=== PATIENT | female | born 2000 | race Caucasian/White ===

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

== ENCOUNTER 2022-12-30 16:02 | Emergency (ER) | payer MEDICAID, SELFPAY ==
[2022-12-30] VITALS (8 sets, daily range): BP systolic 109–114; BP diastolic 60–78; PULSE 75–91; RESP 16–18; TEMP 36; O2SAT 96–100; BMI 22.2
[2022-12-30 17:08] LABS: Absolute Lymphocyte Count 2.53 X10^3/uL (0.83-4.51); Basophil# 0.04 X10^3/uL; Basophil% 0.6 % (0-1); Eosinophil# 0.11 X10^3/uL; Eosinophils% 1.5 % (0-5); Hematocrit 44.9 % (37-47); Hemoglobin 14.7 g/dL (12.0-15.0); Internal QC Validated? YES +Cl - CLEAR BKGD; Lymphocyte # 2.53 X10^3/ul (0.83-4.51); Lymphocyte % 35.2 % (19-41); Mean Corp Hgb Conc 32.7 g/dL (32-36); Mean Corpuscular Hgb 29.5 pg (27.0-32.0); Mean Corpuscular Volume 90.2 fL (81-99); Mean Platelet Vol. 12.2 fl (6.2-12.0); Monocyte# 0.52 X10^3/uL; Monocyte% 7.2 % (0-10); NRBC Flagged by Analyzer 0 % (0-5); Neutrophil # 3.97 X10^3/uL (2.7-7.7); Neutrophil % 55.2 % (47-70); Platelet Count 228 K/mm3 (150-450); RBC Distribution Width CV 12.6 % (11.6-14.6); RBC Distribution Width SD 41.8 fl (35.1-43.9); Record Kit Lot#, Serum Preg. HCG0000667200; Red Blood Count 4.98 M/mm3 (4.2-5.4); White Blood Count 7.2 K/mm3 (4.4-11.0)
[2022-12-30 17:12] LABS: Pregnancy, Serum, hCG Quali. NEGATIVE Negative
[2022-12-30 17:18] LABS: Anion Gap 6 (5-15); BUN 13 mg/dL (7-18); Calcium,Total 9.5 mg/dL (8.5-10.1); Chloride 105 mmol/L (98-107); Creatinine, Serum 0.86 mg/dL (0.55-1.02); EST Glomerular Filtration Rate 89 mL/min (>60); Est Glom Filt Rate - Afr Amer 108 mL/min (>60); Estimated Creatinine Clearance 78.74 ml/min; Glucose 106 mg/dL (74-106); Potassium 3.5 mmol/L (3.5-5.1); Sodium Level 138 mmol/L (136-145)
[2022-12-30 17:26] LABS: Alcohol, Blood (Medical)-Serum < 3.0 mg/dL
[2022-12-30 17:28] LABS: Amphetamine Urine VISTA NEGATIVE (<1000 ng/mL); Barbiturate Urine VISTA NEGATIVE (< 200 ng/mL); Benzodiazepine Urine VISTA NEGATIVE (< 200 ng/mL); Cocaine Urine VISTA NEGATIVE (< 300 ng/mL); Ecstacy Urine VISTA NEGATIVE (< 500 ng/mL); Methadone Urine VISTA NEGATIVE (< 300 ng/mL); PCP Urine VISTA NEGATIVE (< 25 ng/mL); THC Urine VISTA NEGATIVE (< 50 ng/mL); Vista UDS pH Range 7
--- NOTE | 2022-12-30 17:30 | EX.ED.VIS.PS ---
HPI HPI - Psych History of Present Illness Chief Complaint: Suicidal Narrative Narrative: 22-year-old female past medical history of bipolar disorder, takes spironolactone for her acne, is a student at the [employer] who has been going through the wellness center for her increasing depression. She relates remote history that when she was 16 years old she had an attempted suicide and was hospitalized as an inpatient. She currently does not take any medications for her bipolar disorder. She states over the last 6 weeks at school, she has been very stressed and more depressed. Her grandfather at the end of last semester, and she did not go through any counseling for it. She has become increasingly depressed and while she has thoughts of suicide more frequently, they are becoming intrusive. She states that she has no plans on committing suicide, but she thinks about it more often. Additionally, she relates history that she is having hallucinations both auditory and visual. She states that she will wake up and see bugs on the dorm room wall, and other times she will see a silhouette of the face in front of her when she awakens, and she swats that it and there is nothing there. She has been having problems with only eating up to 500 anthony a day for the last 6 weeks. She states that she has had decreased appetite but denies any binging and purging. She has not been diagnosed with anorexia. [facility] Medical History Anxiety Bipolar 1 disorder Suicidal ideation Home Medications spironolactone 100 mg tablet 200 mg PO DAILY 12/30/22 [History Last Taken Unknown] Allergy/AdvReac Type Severity Reaction Status Date / Time meclizine Allergy Intermediate Hives Verified 12/30/22 16:09 Surgical History History of umbilical hernia repair Social History Smoking Status: Never smoker ROS ROS ED ROS Narrative Constitutional: No fever, no chills. HEENT: No sore throat. No neck pain. No loss of vision. No rhinorrhea. Cardiovascular: No chest pain. No palpitations. No pedal edema. Respiratory: No cough, no shortness of breath. Abdominal: No abdominal pain. No nausea. No vomiting. Genitourinary: No dysuria. No hematuria. Musculoskeletal: No myalgias. No arthralgias. Neurologic: No headaches. No dizziness. No lightheadedness. Skin: No rash. No change in color. Psychiatric: Patient depression. Reported visual and auditory hallucinations, but not together. Increasing thoughts of suicide with no plan. EXAM Physical Exam Narrative Exam Narrative: Afebrile. Vital signs noted. HEENT: Normocephalic. Atraumatic. PERRL, EOMI. Neck soft and supple. No point tenderness or step off. Cardiovascular: Regular rate and rhythm. No murmurs, rubs, or gallops appreciated. Respiratory: No tachypnea. Lungs clear to auscultation bilaterally. Gastrointestinal: Abdomen soft, nontender, with normoactive bowel sounds. No rebound or guarding. Neurological: Awake. Alert. Nonfocal, nonlateralizing. Skin: No rash. Normal color. No pallor. Musculoskeletal: No pedal edema. Full range of motion extremities. Psychiatric: Mildly depressed and flat affect. Tearful on examination. Thoughts of suicide but no plan, feels somewhat hopeful. No internal stimulation noted. Appropriate and cooperative. Const Vital Signs: 12/30/22 16:03 12/30/22 17:03 12/30/22 18:00 Temperature 96.8 F L Temperature Source Temporal Pulse Rate 91 88 76 Respiratory Rate 18 16 16 Blood Pressure 114/78 Blood Pressure Mean 90 Pulse Ox 96 100 Oxygen Delivery Method Room Air Room Air Room Air 12/30/22 18:59 12/30/22 19:56 Temperature Temperature Source Pulse Rate 75 76 Respiratory Rate 16 16 Blood Pressure Blood Pressure Mean Pulse Ox 100 100 Oxygen Delivery Method Room Air Room Air MDM MDM MDM Narrative Medical decision making narrative: Given that she has not been eating well, RN at school told her to come to the emergency department for the hallucinations and fear that she may be dehydrated. Medical screening labs were obtained. Her drug screen is negative, ethyl alcohol is negative, urine test is negative. Her electrolyte panel is grossly unremarkable without signs of dehydration with a normal BUN of 13, creatinine normal at 0.86, normal sodium of 138, and potassium normal at 3.5. I do not feel IV fluids are indicated. Her CBC shows normal white count of 7.2 and hemoglobin normal at 14.7. At this point in time, I do feel that she is medically cleared for evaluation by mental health/crisis. In discussion with the mental health counselor/crisis counselor, it was felt that given her auditory, visual, and tactile hallucinations, and that she is not on any medications for her bipolar disorder and has not taken any for years, that she should be hospitalized for stabilization. She is not willing to go to intensive outpatient therapy. I do feel that she requires placement in a psychiatric facility currently because of her hallucinations, decreased appetite, and increasing depression. She will be signed out to the oncoming physician for further observation as she awaits placement in a psychiatric facility. She is in stable condition. History & Record Review Discussion w/independent historian: Patient Additional record(s) reviewed:: Prior ED visit and Prior labs Lab Data Attestation: I reviewed the patient's lab results. Labs: Laboratory Results - last 24 hr 12/30/22 16:27 WBC 7.2 RBC 4.98 Hgb 14.7 Hct 44.9 MCV 90.2 MCH 29.5 MCHC 32.7 RDW Std Deviation 41.8 RDW Coeff of Bianca 12.6 Plt Count 228 MPV 12.2 H Immature Gran % (Auto) 0.300 Neut % (Auto) 55.2 Lymph % (Auto) 35.2 Miner % (Auto) 7.2 Eos % (Auto) 1.5 Baso % (Auto) 0.6 Absolute Neuts (auto) 4.0 Absolute Lymphs (auto) 2.53 Nucleated RBC % 0 Sodium 138 Potassium 3.5 Chloride 105 Carbon Dioxide 27.0 Anion Gap 6 BUN 13 Creatinine 0.86 Estim Creat Clear Calc 78.74 Est GFR (MDRD) Af Amer 108 Est GFR (MDRD) Non-Af 89 BUN/Creatinine Ratio 15.0 Glucose 106 Calcium 9.5 Serum , Qual NEGATIVE Urine Opiates Screen NEGATIVE Urine Methadone Screen NEGATIVE Ur Barbiturates Screen NEGATIVE Ur Phencyclidine Scrn NEGATIVE Ur Amphetamines Screen NEGATIVE MDMA (Ecstasy) Screen NEGATIVE U Benzodiazepines Scrn NEGATIVE Urine Cocaine Screen NEGATIVE U Cannabinoids Screen NEGATIVE Ur Drug Screen Comment Ethyl Alcohol < 3.0 Management Discussion w/another healthcare provider: Behavioral health (Crisis counselor) Discharge Plan Triage Chief Complaint: Suicidal ED Provider: Hardy Tomas Dx/Rx/DC Orders Prescriptions: No Action spironolactone 100 mg tablet 200 mg PO DAILY Primary Care Provider: Care Physician,Viky Primary Referrals: Care Physician,No Primary [Primary Care Provider] -
[2022-12-30] MEDS: Ibuprofen 600 MG Tablet PO (23:12)
[2022-12-31] VITALS: RESP 16
[2022-12-31 01:00] VITALS: RESP 16
[2022-12-31 02:00] VITALS: RESP 16
[2022-12-31 07:17] VITALS: BP 101/62; PULSE 82; RESP 16; TEMP 36.4; O2SAT 100
--- NOTE | 2022-12-31 08:34 | ED.RN ---
A director from [facility] called and requested information on this patient; advised her due to HIPAA there was no further information I could give her. She requested to speak with our SW, no SW currently on shift.
== END 2022-12-31 09:36 ==
PROVIDERS: Emergency Provider Emergency Medicine; Visit Provider Emergency Medicine
DX: R44.3 Hallucinations, unspecified (principal); F31.9 Bipolar disorder, unspecified
CPT/HCPCS: 36415; 80048; 80307; 82077; 84703; 85025; 87426; 99285; A4216

== ENCOUNTER 2023-05-21 15:38 | Emergency (ER) | payer MEDICAID, SELFPAY ==
[2023-05-21 15:39] VITALS: BP 108/75; PULSE 88; RESP 17; TEMP 36.3; O2SAT 98; BMI 23.6
[2023-05-21 16:31] LABS: Bacteria 0 SEEN /hpf (None Seen); Mucous, Urine 0 SEEN /hpf (<or=2+); Red Blood Cells-Urine 0 SEEN /hpf (0-5); White Blood Cells 0 SEEN /hpf (0-5)
[2023-05-21 16:35] LABS: Color, Urine Yellow (Yellow); Glucose, Dipstick Normal (Normal); Ketone-Dipstick Negative (Negative); Leukocyte Esterase-Dipstick Negative /ul (Negative); Nitrite-Dipstick Negative (Negative); Occult Blood-Urine Negative /ul (Negative); Protein-Dipstick Negative (Negative); Urine Bilirubin Dipstick Negative (Negative); Urine Clarity Clear (Clear); Urine Urobilinogen Normal (Normal)
[2023-05-21 16:36] LABS: Internal QC Validated? YES +Cl - CLEAR BKGD; Pregnancy, Urine Negative Negative
[2023-05-21 16:53] LABS: Squamous Epithelial Cells - UA 0-5 SEEN /hpf (5-10)
--- NOTE | 2023-05-21 22:17 | EDS_ITS ---
HPI HPI - Female History of Present Illness Chief Complaint: Vag Bleeding Narrative Narrative: 22-year-old female with vaginal bleeding and vaginal irritation. She states she is sexually active with her partner. She has no concern for STDs. She notes she has had some itching and irritation this week. She is also had some vaginal spotting which is atypical for her. She is supposed to start her menstrual cycle next week. No concern for . She does not have any abdominal pain. PFSH PFS Medical History Anxiety Bipolar 1 disorder Suicidal ideation Home Medications spironolactone 100 mg tablet 200 mg PO DAILY 12/30/22 [History Last Taken Unknown] fluconazole 150 mg tablet 150 mg PO Q3D 2 doses #2 tabs 05/21/23 [Rx Last Taken Unknown] metronidazole 500 mg tablet 500 mg PO BID #14 tabs 05/21/23 [Rx Last Taken Unknown] Allergy/AdvReac Type Severity Reaction Status Date / Time meclizine Allergy Intermediate Hives Verified 05/21/23 15:40 Surgical History History of umbilical hernia repair Social History Smoking Status: Never smoker ROS ROS ED Constitutional Constitutional ED: Denies chills, fever(s) or sweats Eyes Eyes: Denies blurry vision or change in vision ENT ENT ED: Denies ear pain or sore throat Cardiovascular Cardiovascular: Denies chest pain, palpitations or racing heartbeat Respiratory/Chest Respiratory/Chest: Denies cough, dyspnea or sputum Gastrointestinal Gastrointestinal: Denies abdominal pain, constipation, diarrhea, nausea or vomiting Genitourinary Genitourinary ED: Reports other Details: Vaginal spotting and itching ; Denies dysuria, hematuria or urinary frequency Musculoskeletal Musculoskeletal: Denies arthralgias, myalgias or neck pain Integumentary Denies abscess, Abrasions or rash Neurologic Neurologic: Denies headache(s), paresthesias or weakness Psychiatric Psychiatric: Denies anxiety, depression, suicidal ideation or suicidal thoughts Endocrine Endocrinology: Denies polydipsia or polyuria EXAM Physical Exam Const Vital Signs: 05/21/23 15:39 Temperature 97.4 F L Temperature Source Temporal Pulse Rate 88 Respiratory Rate 17 Blood Pressure 108/75 Blood Pressure Mean 86 Pulse Ox 98 Oxygen Delivery Method Room Air Positive well nourished General Appearance ED: NAD HEENT Reports moist mucous membranes Eyes PERRL and EOMs intact bilaterally Chest Wall inspection of chest normal Resp normal respiratory effort Cardio regular rate GI normal to inspection, nondistended, normoactive bowel sounds Narrative: Pelvic exam is deferred Neuro oriented x3 Sensorium / Orientation: alert Psych mental status grossly normal Skin no rashes or lesions noted MDM MDM MDM Narrative Medical decision making narrative: Patient presenting with vaginal spotting and itching. Urinalysis negative for infection or occult blood. test is negative. Offered pelvic exam as patient complaining of discharge and bleeding. Patient does not wish to have a pelvic exam performed today. We discussed treatment options. Patient will be treated with Flagyl for suspected BV. Since she is having itching she will be treated with fluconazole 150 mg today and at the end of her course of antibiotics. If she has any new or worsening symptoms she is to return. Impression: 1. BV 2. Sae vaginitis Lab Data Attestation: I reviewed the patient's lab results. Labs: Laboratory Results - last 24 hr 05/21/23 16:20 Urine Color Yellow Urine Clarity Clear Urine pH 6.0 Ur Specific [place] 1.020 Urine Protein Negative Urine Glucose (UA) Normal Urine Ketones Negative Urine Occult Blood Negative Urine Nitrite Negative Urine Bilirubin Negative Urine Urobilinogen Normal Ur Leukocyte Esterase Negative Urine RBC 0 SEEN Urine WBC 0 SEEN Ur Squamous Epith Cells 0-5 SEEN Urine Bacteria 0 SEEN Urine Mucus 0 SEEN Urine Test Negative Discharge Plan Triage Chief Complaint: Vag Bleeding ED Provider: New Burrows Dx/Rx/DC Orders Instructions: ED Dysfunctional Uterine Bleeding, ED Bacterial Vaginosis (BV), ED SAE VAGINITIS Prescriptions: New fluconazole 150 mg tablet 150 mg PO Q3D Qty: 2 0RF metronidazole 500 mg tablet 500 mg PO BID Qty: 14 0RF No Action spironolactone 100 mg tablet 200 mg PO DAILY Primary Care Provider: Care Physician,No Primary Referrals: Care Physician,No Primary [Primary Care Provider] - Disposition Disposition: Home, Self Care Discharge Date/Time: 05/21/23 17:55
== END 2023-05-21 17:55 | disposition home or self-care (01) ==
LOC: ED 17:35
PROVIDERS: Emergency Provider Student in an Organized Health Care Education/Training Program; Visit Provider Student in an Organized Health Care Education/Training Program
DX: N76.0 Acute vaginitis (principal); B37.31 Acute candidiasis of vulva and vagina
CPT/HCPCS: 81001; 81025; 99282

== ENCOUNTER 2024-02-23 06:52 | Emergency (ER) | payer MEDICAID, SELFPAY ==
[2024-02-23 06:53] VITALS: BP 141/90; PULSE 101; RESP 25; TEMP 36.9; O2SAT 98; BMI 28.3
[2024-02-23 07:44] LABS: Absolute Lymphocyte Count 2.24 X10^3/uL (0.83-4.51); Absolute Neutrophil Count 5.5 X10^3/uL (2.0-7.7); Basophil# 0.03 X10^3/uL; Basophil% 0.3 % (0-1); Eosinophil# 0.21 X10^3/uL; Eosinophils% 2.4 % (0-5); Hematocrit 40.4 % (37-47); Hemoglobin 14.3 g/dL (12.0-15.0); Lymphocyte # 2.24 X10^3/ul (0.83-4.51); Lymphocyte % 25.1 % (19-41); Mean Corp Hgb Conc 35.4 g/dL (32-36); Mean Corpuscular Hgb 30.3 pg (27.0-32.0); Mean Corpuscular Volume 85.6 fL (81-99); Mean Platelet Vol. 11.9 fl (6.2-12.0); Monocyte# 0.89 X10^3/uL; NRBC Flagged by Analyzer 0 % (0-5); Neutrophil # 5.52 X10^3/uL (2.7-7.7); Platelet Count 210 K/mm3 (150-450); RBC Distribution Width CV 12.9 % (11.6-14.6); RBC Distribution Width SD 40.3 fl (35.1-43.9); Red Blood Count 4.72 M/mm3 (4.2-5.4); White Blood Count 8.9 K/mm3 (4.4-11.0)
[2024-02-23 07:58] LABS: BNP,B-Type NATRIURETIC PEPTIDE 13.9 pg/mL (0-100)
[2024-02-23 08:10] LABS: Anion Gap 6 (5-15); BUN 17 mg/dL (7-18); BUN/Creat Ratio 20.4 RATIO (10-20); Calcium,Total 9.1 mg/dL (8.5-10.1); Chloride 108 mmol/L (98-107); Creatinine, Serum 0.84 mg/dL (0.55-1.02); EST Glomerular Filtration Rate 91 mL/min (>60); Est Glom Filt Rate - Afr Amer 111 mL/min (>60); Estimated Creatinine Clearance 93.39 ml/min; Glucose 99 mg/dL (74-106); Potassium 3.4 mmol/L (3.5-5.1); Sodium Level 140 mmol/L (136-145); Troponin-I HS (w/2H Reflex) 5 pg/mL (3.0-54.0)
[2024-02-23 08:12] VITALS: BP 124/76; PULSE 68; RESP 15; O2SAT 94
[2024-02-23 08:21] LABS: D-Dimer Quantitative (DVT/PE) 0.28 FEU/ug/m (0.27-0.49)
[2024-02-23 09:11] VITALS: BP 100/51; PULSE 85; RESP 16; TEMP 36.4; O2SAT 99
[2024-02-23 09:30] VITALS: BP 99/53; PULSE 84; RESP 15; TEMP 36.2; O2SAT 99
[2024-02-23 09:39] LABS: Reflex Troponin-HS? (from REC) Y
== END 2024-02-23 09:31 | disposition home or self-care (01) ==
PROVIDERS: Emergency Provider Surgery; Visit Provider Surgery
DX: R94.6 Abnormal results of thyroid function studies (principal); F31.9 Bipolar disorder, unspecified
CPT/HCPCS: 71045; 80048; 83880; 84443; 84484; 85025; 85379; 93005; 99284; A4216